=== PATIENT | male | born 1975 | race Caucasian/White ===

== ENCOUNTER → 2019-07-26 08:40 | Outpatient (CLI) | payer BC, SELFPAY ==
[2019-07-26 08:51] VITALS: BMI 35.7
--- NOTE | 2019-07-26 09:00 | MASS_PTH ---
PATIENT: JAMIE ELDER LOC: [facility] U#:[id number] AGE/SX: 50/M ROOM: RE07/26/[address]: Dr. Froy Jones MD : 1975 BED: DIS: SPEC #: [id number] RECD: 07/28/19 07:36 STATUS: MICHAEL ZEINAB #: [id number] KAILEE: 07/26/19 09:[address]: Froy Jones DEPT: SURGICAL PATHOLOGY RECD BY: Babak Rai ENTERED: 07/28/19 08:57 SP TYPE: Mass OTHR DR: Karen Dang, MARIVEL Tissues: Neck, NOS Procedures: Surgery Specimen Level III HEADER OPERATION: Excision neck mass PRE-OP DIAGNOSIS: Neck mass TISSUE SUBMITTED: Neck tissue MICROSCOPIC DIAGNOSIS Soft tissue lesion of neck, excision: Mature adipose tissue consistent with lipoma. AM:gisella 07/29/19 MICROSCOPIC DESCRIPTION Slides are reviewed. GROSS DESCRIPTION Received in fixative is one container labeled with the patient's name and designated neck mass. The specimen consists of multiple pieces of adipose tissue that in aggregate measure 3 x 3 x 1.8 cm. Sections reveal yellow adipose cut surfaces without area of hemorrhage, necrosis and cystic degeneration. The entire specimen is submitted in three cassettes. / SJ:gisella 07/28/19 TC:1 CPT: 30037
== END ==
PROVIDERS: Family Provider Nurse Practitioner Family; PCP Nurse Practitioner Family; Referring Provider Surgery; Visit Provider Surgery
DX: R22.1 Localized swelling, mass and lump, neck (principal)
CPT/HCPCS: 88304; 88305

== ENCOUNTER → 2023-09-07 | Outpatient (CLI) | payer BC, SELFPAY ==
--- NOTE | 2023-09-07 14:10 | LES_PTH ---
PATHOLOGY RESULTS PATIENT: JAMIE ELDER LOC: [facility] U#:[id number] AGE/SX: 48/M ROOM: RE09/07/[address]: Dr. Froy Jones MD : 1975 BED: DIS: 09/07/2023 SPEC #: [id number] RECD: 09/07/23 14:58 STATUS: MICHAEL ARRIOLA #: [id number] KAILEE: 09/07/23 14:[address]: Froy Jones DEPT: SURGICAL PATHOLOGY RECD BY: Edwina Dudley ENTERED: 09/10/23 10:14 SP TYPE: Lesion OTHR DR: MARIVEL Barrera Tissues: Skin of chest Procedures: Surgery Specimen Level IV HEADER OPERATION: Excision of skin lesion on chest PRE-OP DIAGNOSIS: Skin lesion on chest TISSUE SUBMITTED: Chest skin lesion MICROSCOPIC DIAGNOSIS Skin lesion of chest, excision: Pigmented compound nevus. See comment. AM:gisella 09/11/2023 COMMENT The lesion appears to have been completely excised in the planes examined. Case has been reviewed in consultation with Dr. Madden who concurs with the above diagnosis. IDC:SJ MICROSCOPIC DESCRIPTION Slides are reviewed. GROSS DESCRIPTION Received is one container labeled with the patient's name and not further designated. The specimen consists of an ellipse of light tuttle skin measuring 2.2 x 1.0 cm and a depth of excision measuring 1.0 cm. The cutaneous surface displays a flat, pigmented lesion measuring 1.0 cm in greatest dimension. The specimen is inked, serially sectioned and totally submitted in two cassettes as follows: 1 - tips, 2??remainder of specimen. / AM:gisella 09/10/2023 TC:5 CPT: 25377
== END | disposition home or self-care (01) ==
PROVIDERS: PCP Nurse Practitioner Family; Referring Provider Surgery; Visit Provider Surgery
DX: L98.9 Disorder of the skin and subcutaneous tissue, unspecified (principal)
CPT/HCPCS: 88305